=== PATIENT | male | born 1995 | race Caucasian/White ===

== ENCOUNTER 2018-04-08 18:33 | Inpatient (IN) | payer BC ==
[2018-04-08 19:26] VITALS: BMI 32.3
--- NOTE | 2018-04-08 20:21 | HP ---
CIWA Score Nausea/Vomitin Muscle Tremors: 3 Anxiety: 3 Agitation: 2 Paroxysmal Sweats: 2 Orientation: 0-Oriented Tacttile Disturbances: 2-Mild Itch/Numbness/Burn Auditory Disturbances: 2-Mild Harshness/Frighten Visual Disturbances: 1-Very Mild Sensitivity Headache: 1-Very Mild CIWA-Ar Total Score: 18 - Admission Criteria [facility] Guidelines: Admission for Medically Managed Detox: Requires at least one of the followin. CIWA greater than 12 2. Seizures within the past 24 hours 3. Delirium tremens within the past 24 hours 4. Hallucinations within the past 24 hours 5. Acute intervention needed for co occurring medical disorder 6. Acute intervention needed for co occurring psychiatric disorder 7. Severe withdrawal that cannot be handled at a lower level of care (continued vomiting, continued diarrhea, abnormal vital signs) requiring intravenous medication and/or fluids 8. Admission ROS [facility] - HPI Chief Complaint: DEPENDENT ON ETOH ONLY Allergies/Adverse Reactions: Allergies Allergy/AdvReac Type Severity Reaction Status Date / Time No Known Allergies Allergy Verified 04/08/18 19:26 History of Present Illness: THE PT. IS REQUESTING ADMISSION TO THE DETOX UNIT AND CAME FOR H AND PE Exam Limitations: No Limitations - Ebola screening Have you traveled outside of the country in the last 21 days: No (N) Have you had contact with anyone from an Ebola affected area: No Have you been sick,other than usual withdrawal symptoms: No Do you have a fever: No - Review of Systems Constitutional: See HPI, Malaise, Weakness EENT: reports: See HPI Respiratory: reports: See HPI Cardiac: reports: See HPI GI: reports: See HPI, Nausea, Abdominal cramping : reports: See HPI Musculoskeletal: reports: See HPI, Muscle Pain, Muscle Weakness Integumentary: reports: See HPI, Sweating Neuro: reports: See HPI, Headache, Tremors, Weakness Endocrine: reports: See HPI Hematology: reports: See HPI Psychiatric: reports: Judgement Intact, Orientated x3, Anxious, Depressed Patient History - Patient Medical History Hx Asthma: No Hx Cardiac Disorders: No Hx Hypertension: Yes Hx Seizures: No Hx Diabetes: No Hx Gastrointestinal Disorders: No Hx Sexually Transmitted Disorders: No Hx Renal Disease (ESRD): No Hx Human Immunodeficiency Virus (HIV): No Hx Hepatitis C: No Hx Depression: Yes (AND ANXIETY) Hx Schizophrenia: Yes - Patient Surgical History Past Surgical History: Yes Other Surgical History: HEAD INJURY IN 2012 - Smoking Cessation Smoking history: Current every day smoker Have you smoked in the past 12 months: Yes Aproximately how many cigarettes per day: 30 Hx Chewing Tobacco Use: No Initiated information on smoking cessation: Yes 'Breaking Loose' booklet given: 04/08/18 - Substance & Tx. History Hx Alcohol Use: Yes Hx Substance Use: No Substance Use Type: Alcohol Hx Substance Use Treatment: No - Substances Abused Alcohol Route: Oral Frequency: Daily Amount used: 6 beers Age of first use: 22 Date of Last Use: 04/08/18 Family Disease History - Family Disease History Family History: Denies Admission Physical Exam S - Vital Signs Vital Signs: Vital Signs - 24 hr 04/08/18 19:17 Temperature 97.8 F Pulse Rate 114 H Respiratory 18 Rate Blood Pressure 136/92 - Physical General Appearance: Yes: No Apparent Distress, Nourished, Appropriately Dressed , Alcohol on Breath, Tremorous, Sweating, Anxious HEENTM: Yes: Hearing grossly Normal, Normocephalic, Normal Voice, ASHLEY, Pharynx Normal Respiratory: Yes: Chest Non-Tender, Lungs Clear, Normal Breath Sounds Neck: Yes: No masses,lesions,Nodules, Supple, Trachea in good position Breast: Yes: Breast Exam Deferred, Axillae without masses Cardiology: Yes: Regular Rhythm, S1, S2, Tachycardia Abdominal: Yes: Normal Bowel Sounds, Non Tender, Soft, Protuberent Back: Yes: Normal Inspection Musculoskeletal: Yes: full range of Motion, Gait Steady, Pelvis Stable, Muscle Pain, Muscle weakness Extremities: Yes: Normal Capillary Refill, Normal Range of Motion, Non-Tender, Tremors Neurological: Yes: stem crusher II-XII NML intact, Fully Oriented, Alert, Motor Strength 5/5, Normal Response, Depressed Affect Integumentary: Yes: Warm, Moist Lymphatic: Yes: Within Normal Limits - Addiitonal Findings: HEALED SURGICAL SCAR ON THE ABDOMEN++ - Diagnostic (1) EtOH dependence Current Visit: Yes Status: Chronic Qualifiers: Substance use status: uncomplicated Qualified Code(s): F10.20 - Alcohol dependence, uncomplicated (2) Nicotine dependence Current Visit: Yes Status: Chronic Qualifiers: Nicotine product type: cigarettes Substance use status: uncomplicated Qualified Code(s): F17.210 - Nicotine dependence, cigarettes, uncomplicated (3) Anxiety and depression Current Visit: Yes Status: Chronic (4) Schizo affective schizophrenia Current Visit: Yes Status: Chronic Cleared for Admission [facility] - Detox or Rehab [facility] Level of Care: Medically Supervised Detox Regimen/Protocol: Librium [facility] Breath Alcohol Content Breath Alcohol Content: 0.055 Urine Drug Screen - Results Drug Screen Negative: Yes
[2018-04-08] MEDS ORDERED: MAGNESIUM CITRATE 300 ML BOTTLE PO PRN (20:25)
[2018-04-08] MEDS ORDERED: MAGNESIUM HYDROX 2400MG/30ML ORAL SUSPENSION 30 ML CUP PO PRN (20:25)
[2018-04-08] MEDS ORDERED: MENTHOL/PHENOL 1 EACH UD MM PRN (20:25)
[2018-04-08] MEDS ORDERED: LOPERAMIDE HCL 2 MG CAPSULE PO PRN (20:25)
[2018-04-08] MEDS ORDERED: chlordiazePOXIDE HCL 25 MG CAPSULE PO PRN (20:25)
[2018-04-08] MEDS ORDERED: P-EPHED 60MG/TRIPROLIDI 2.5MG TABLET PO PRN (20:25)
[2018-04-08] MEDS ORDERED: ACETAMINOPHEN 325 MG TABLET (FP) PO PRN (20:25)
[2018-04-08] MEDS ORDERED: IBUPROFEN 400 MG TABLET (FP) PO PRN (20:25)
[2018-04-08] MEDS ORDERED: MAG HYDROX/AL HYDROX/SIMETH 30 ML UNIT-DOSE CUP PO PRN (20:25)
[2018-04-08] MEDS ORDERED: guaiFENesin/D-METHORPHAN HB 10 ML UNIT-DOSE CUPS PO PRN (20:25)
[2018-04-08] MEDS ORDERED: MELATONIN 5 MG TABLETS PO PRN (22:00)
[2018-04-08] MEDS: THIAMINE HCL 100 MG TABLET (FP) PO SCH (22:51)
[2018-04-08] MEDS: chlordiazePOXIDE HCL 25 MG CAPSULE PO SCH (22:51)
[2018-04-09] MEDS: chlordiazePOXIDE HCL 25 MG CAPSULE PO SCH ×4 (05:32→22:22)
--- NOTE | 2018-04-09 09:25 | CONSULT ---
[facility] Psychiatric Consult - Data Date of interview: 04/09/18
--- NOTE | 2018-04-09 09:30 | CONSULT ---
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 Refer to addiction counselor's summary for further information Medical History: Significant for hypertension. Smokes cigarettes 1.5 ppd Psychiatric History: Reports hat his first psychiatric contact was at age 18 when he was diagnosed with ADHD/Panic Disorder by a psychiatrist in [place], [place]. He was started on Adderall and Klonopin which he took for 3 years. At [age] , he had his first psychiatric admission to [facility] in [place], [place] and he was diagnosed with Schizoaffective Disorder. That same year he had a second admission in [facility] in [place]. He receives psychiatric outpatient services at [facility] in [place], [place] and he is prescribed Lexapro 15 mg po daily, Latuda 60 mg po HS and Atomoxetine 80 mg po daily. Told play writer that despite taking these medications, he continues to hear voices all the time. Denies history of suicidal attempt. At present, reports feeling depressed, anxious and sleeping poorly. Told play writer that Melatonin given to him last night for insomnia did not help. Physical/Sexual Abuse/Trauma History: Denies history of emotional, physical or sexual abuse as well as DV relationship. No service Additional Comment: Reports history of previous arrests for possession of cannabis. No probation at present Mental Status Exam - Mental Status Exam Alert and Oriented to: Time, Person Cognitive Function: Fair Patient Appearance: Well Groomed Mood: Depressed, Anxious Affect: Appropriate Patient Behavior: Cooperative Speech Pattern: Clear Voice Loudness: Normal Thought Process: Intact, Goal Oriented Hallucinations: Denies Suicidal Ideation: Denies Homicidal Ideation: Denies Insight/Judgement: Fair Sleep: Poorly Appetite: Poor Muscle strength/Tone: Rigidity Gait/Station: Normal Psychiatric Findings - Problem List ([place] 1, 2,3) (1) ADHD (attention deficit hyperactivity disorder) Current Visit: Yes Status: Chronic (2) Schizoaffective disorder Current Visit: Yes Status: Chronic (3) Alcohol-induced mood disorder Current Visit: Yes Status: Acute (4) Alcohol-induced sleep disorder Current Visit: Yes Status: Acute (5) Alcohol dependence Current Visit: Yes Status: Acute (6) Nicotine dependence Current Visit: Yes Status: Chronic Qualifiers: Nicotine product type: cigarettes Substance use status: uncomplicated Qualified Code(s): F17.210 - Nicotine dependence, cigarettes, uncomplicated (7) HTN (hypertension) Current Visit: Yes Status: Chronic - Initial Treatment Plan Initial Treatment Plan: 1) Continue Lexapro 15 mg po daily, Latuda 60 mg po HS and Atomoxetine 80 mg po daily. 2) Start Belsomra 10 mg po HS prn for insomnia. 3) Continue inpatient detoxification
[2018-04-09] MEDS: LOSARTAN POTASSIUM 50 MG TABLET (FP) PO SCH (10:04)
[2018-04-09] MEDS: ESCITALOPRAM OXALATE 10 MG TABLET (FP) PO SCH (10:04)
[2018-04-09] MEDS: NIFEdipine E.R 60 MG TABLET (UD) PO SCH (10:04)
[2018-04-09] MEDS: PRENATAL VITAMINS W/ FOLIC ACID TABLET (FP) PO SCH (10:04)
[2018-04-09] MEDS: NICOTINE 21 MG/24 HOURS TOPICAL PATCH TD SCH (10:05)
[2018-04-09] MEDS: NICOTINE POLACRILEX 4 MG GUM BUC PRN ×5 (10:06→21:11)
[2018-04-09 10:48] LABS: HEMATOCRIT 40.6 % (35.4-49); HEMOGLOBIN 13.3 GM/dL (11.7-16.9); MCH 26.5 pg (25.7-33.7); MCHC 32.8 g/dl (32.0-35.9); MEAN CELL VOLUME 80.8 fl (80-96); MEAN PLT VOLUME 8.9 fl (7.5-11.1); PLATELET COUNT 211 K/MM3 (134-434); RBC 5.03 M/mm3 (4.00-5.60); RDW 15.6 % (11.9-15.9); WHITE BLOOD COUNT 8.6 K/mm3 (4.0-10.0)
[2018-04-09 10:57] LABS: ALK PHOS 133 U/L (45-117); ANION GAP 8 MMOL/L (8-16); BILIRUBIN,TOTAL 0.5 mg/dL (0.2-1); BLOOD UREA NITROGEN 13 mg/dL (7-18); CALCIUM 8.5 mg/dL (8.5-10.1); CHLORIDE 103 mmol/L (98-107); CO2 26 mmol/L (21-32); CREATININE 0.8 mg/dL (0.55-1.3); GLUCOSE,RANDOM 92 mg/dL (74-106); POTASSIUM 4.1 mmol/L (3.5-5.1); SGOT/AST 31 U/L (15-37); SGPT/ALT 62 U/L (13-61); SODIUM 136 mmol/L (136-145); TOT PROT 6.8 g/dl (6.4-8.2)
--- NOTE | 2018-04-09 17:43 | PN ---
S CIWA - CIWA Score Nausea/Vomitin Muscle Tremors: 4-Moderate,w/Arms Extend Anxiety: 4-Mod. Anxious/Guarded Agitation: 4-Moderately Restless Paroxysmal Sweats: 3 Orientation: 0-Oriented Tacttile Disturbances: 1-Very Mild Itch/Numbness Auditory Disturbances: 0-None Visual Disturbances: 0-None Headache: 0-None Present CIWA-Ar Total Score: 18 [facility] Progress Note (SOAP) Subjective: Body aches, sweating, interrupted sleep Objective: 04/09/18 17:41 Last Vital Signs Temp Pulse Resp BP Pulse Ox 97 F L 100 H 20 149/99 04/09/18 13:40 04/09/18 13:40 04/09/18 13:40 04/09/18 13:40 Elevated b/p (h/o htn, on meds) Laboratory Tests 04/09/18 04/09/18 04/09/18 07:30 07:30 07:30 WBC 8.6 RBC 5.03 Hgb 13.3 Hct 40.6 MCV 80.8 MCH 26.5 MCHC 32.8 RDW 15.6 Plt Count 211 MPV 8.9 Sodium 136 Potassium 4.1 Chloride 103 Carbon Dioxide 26 Anion Gap 8 BUN 13 Creatinine 0.8 Creat Clearance w eGFR > 60 Random Glucose 92 Calcium 8.5 Total Bilirubin 0.5 AST 31 ALT 62 H Alkaline Phosphatase 133 H Total Protein 6.8 Albumin 4.0 RPR Titer Nonreactive Labs reviewed Assessment: 04/09/18 17:42 Withdrawal symptoms Plan: Continue detox Encouraged PO water intake HTN: resumed nifedipine and losartan
[2018-04-09] MEDS ORDERED: LURASIDONE HCL 40 MG TABLET PO SCH (22:00)
[2018-04-09] MEDS: LURASIDONE HCL 20 MG, LURASIDONE HCL 40 MG PO SCH (22:22)
[2018-04-09] MEDS: THIAMINE HCL 100 MG TABLET (FP) PO SCH (22:23)
[2018-04-09] MEDS: SUVOREXANT 10 MG TABLET PO PRN (22:25)
[2018-04-09] MEDS: ATOMOXETINE HCL 40 MG CAPSULE PO SCH (23:31)
[2018-04-10] MEDS: chlordiazePOXIDE HCL 25 MG CAPSULE PO SCH ×3 (05:26→16:59)
[2018-04-10] MEDS: NICOTINE POLACRILEX 4 MG GUM BUC PRN ×6 (05:26→21:07)
[2018-04-10] MEDS: PRENATAL VITAMINS W/ FOLIC ACID TABLET (FP) PO SCH (10:04)
[2018-04-10] MEDS: NIFEdipine E.R 60 MG TABLET (UD) PO SCH (10:04)
[2018-04-10] MEDS: LOSARTAN POTASSIUM 50 MG TABLET (FP) PO SCH (10:04)
[2018-04-10] MEDS: ESCITALOPRAM OXALATE 10 MG TABLET (FP) PO SCH (10:04)
[2018-04-10] MEDS: ATOMOXETINE HCL 40 MG CAPSULE PO SCH (10:05)
[2018-04-10] MEDS: NICOTINE 21 MG/24 HOURS TOPICAL PATCH TD SCH (10:05)
[2018-04-10] MEDS: PANTOPRAZOLE 40 MG TABLET (FP) PO SCH (10:09)
--- NOTE | 2018-04-10 13:10 | PN ---
S CIWA - CIWA Score Nausea/Vomitin-Mild Nausea/No Vomiting Muscle Tremors: 4-Moderate,w/Arms Extend Anxiety: 3 Agitation: 3 Paroxysmal Sweats: 1-Minimal Palms Moist Orientation: 0-Oriented Tacttile Disturbances: 1-Very Mild Itch/Numbness Auditory Disturbances: 0-None Visual Disturbances: 0-None Headache: 1-Very Mild CIWA-Ar Total Score: 14 [facility] Progress Note (SOAP) Subjective: tremor sweat headaches trouble sleep at night gi distress Objective: 04/10/18 13:09 Vital Signs Temperature 98.8 F 04/10/18 13:08 Pulse Rate 130 H 04/10/18 13:08 Respiratory Rate 19 04/10/18 13:08 Blood Pressure 145/93 04/10/18 13:08 O2 Sat by Pulse Oximetry (%) Laboratory Last Values WBC 8.6 K/mm3 (4.0-10.0) 04/09/18 07:30 RBC 5.03 M/mm3 (4.00-5.60) 04/09/18 07:30 Hgb 13.3 GM/dL (11.7-16.9) 04/09/18 07:30 Hct 40.6 % (35.4-49) 04/09/18 07:30 MCV 80.8 fl (80-96) 04/09/18 07:30 MCH 26.5 pg (25.7-33.7) 04/09/18 07:30 MCHC 32.8 g/dl (32.0-35.9) 04/09/18 07:30 RDW 15.6 % (11.9-15.9) 04/09/18 07:30 Plt Count 211 K/MM3 (134-434) 04/09/18 07:30 MPV 8.9 fl (7.5-11.1) 04/09/18 07:30 Sodium 136 mmol/L (136-145) 04/09/18 07:30 Potassium 4.1 mmol/L (3.5-5.1) 04/09/18 07:30 Chloride 103 mmol/L (98-107) 04/09/18 07:30 Carbon Dioxide 26 mmol/L (21-32) 04/09/18 07:30 Anion Gap 8 MMOL/L (8-16) 04/09/18 07:30 BUN 13 mg/dL (7-18) 04/09/18 07:30 Creatinine 0.8 mg/dL (0.55-1.3) 04/09/18 07:30 Creat Clearance w eGFR > 60 (>60) 04/09/18 07:30 Random Glucose 92 mg/dL (74-106) 04/09/18 07:30 Calcium 8.5 mg/dL (8.5-10.1) 04/09/18 07:30 Total Bilirubin 0.5 mg/dL (0.2-1) 04/09/18 07:30 AST 31 U/L (15-37) 04/09/18 07:30 ALT 62 U/L (13-61) H 04/09/18 07:30 Alkaline Phosphatase 133 U/L (45-117) H 04/09/18 07:30 Total Protein 6.8 g/dl (6.4-8.2) 04/09/18 07:30 Albumin 4.0 g/dl (3.4-5.0) 04/09/18 07:30 RPR Titer Nonreactive (NONREACTIVE) 04/09/18 07:30 lab noted Assessment: 04/10/18 13:09 withdrawal sx Plan: continue detox
[2018-04-10] MEDS: THIAMINE HCL 100 MG TABLET (FP) PO SCH (22:00)
[2018-04-10] MEDS: SUVOREXANT 10 MG TABLET PO PRN (22:01)
[2018-04-10] MEDS: LURASIDONE HCL 20 MG, LURASIDONE HCL 40 MG PO SCH (22:01)
[2018-04-10] MEDS: chlordiazePOXIDE 5 MG CAPSULE PO SCH (22:01)
[2018-04-11] MEDS: chlordiazePOXIDE 5 MG CAPSULE PO SCH ×3 (05:37→17:05)
[2018-04-11] MEDS: NICOTINE POLACRILEX 4 MG GUM BUC PRN ×6 (05:38→21:11)
[2018-04-11] MEDS: ESCITALOPRAM OXALATE 10 MG TABLET (FP) PO SCH (10:05)
[2018-04-11] MEDS: LOSARTAN POTASSIUM 50 MG TABLET (FP) PO SCH (10:06)
[2018-04-11] MEDS: PRENATAL VITAMINS W/ FOLIC ACID TABLET (FP) PO SCH (10:06)
[2018-04-11] MEDS: NICOTINE 21 MG/24 HOURS TOPICAL PATCH TD SCH (10:06)
[2018-04-11] MEDS: ATOMOXETINE HCL 40 MG CAPSULE PO SCH (10:07)
[2018-04-11] MEDS: NIFEdipine E.R 60 MG TABLET (UD) PO SCH (10:07)
[2018-04-11] MEDS: PANTOPRAZOLE 40 MG TABLET (FP) PO SCH (10:07)
--- NOTE | 2018-04-11 14:44 | PN ---
[facility] Progress Note (SOAP) Subjective: patient requests to leave the detox around 06;30 AM feeling better no tremor no gi distress less sweat discuss aftercare with staff Objective: 04/11/18 14:42 Vital Signs Temperature 98.2 F 04/11/18 14:40 Pulse Rate 113 H 04/11/18 14:40 Respiratory Rate 18 04/11/18 14:40 Blood Pressure 135/84 04/11/18 14:40 O2 Sat by Pulse Oximetry (%) Laboratory Last Values WBC 8.6 K/mm3 (4.0-10.0) 04/09/18 07:30 RBC 5.03 M/mm3 (4.00-5.60) 04/09/18 07:30 Hgb 13.3 GM/dL (11.7-16.9) 04/09/18 07:30 Hct 40.6 % (35.4-49) 04/09/18 07:30 MCV 80.8 fl (80-96) 04/09/18 07:30 MCH 26.5 pg (25.7-33.7) 04/09/18 07:30 MCHC 32.8 g/dl (32.0-35.9) 04/09/18 07:30 RDW 15.6 % (11.9-15.9) 04/09/18 07:30 Plt Count 211 K/MM3 (134-434) 04/09/18 07:30 MPV 8.9 fl (7.5-11.1) 04/09/18 07:30 Sodium 136 mmol/L (136-145) 04/09/18 07:30 Potassium 4.1 mmol/L (3.5-5.1) 04/09/18 07:30 Chloride 103 mmol/L (98-107) 04/09/18 07:30 Carbon Dioxide 26 mmol/L (21-32) 04/09/18 07:30 Anion Gap 8 MMOL/L (8-16) 04/09/18 07:30 BUN 13 mg/dL (7-18) 04/09/18 07:30 Creatinine 0.8 mg/dL (0.55-1.3) 04/09/18 07:30 Creat Clearance w eGFR > 60 (>60) 04/09/18 07:30 Random Glucose 92 mg/dL (74-106) 04/09/18 07:30 Calcium 8.5 mg/dL (8.5-10.1) 04/09/18 07:30 Total Bilirubin 0.5 mg/dL (0.2-1) 04/09/18 07:30 AST 31 U/L (15-37) 04/09/18 07:30 ALT 62 U/L (13-61) H 04/09/18 07:30 Alkaline Phosphatase 133 U/L (45-117) H 04/09/18 07:30 Total Protein 6.8 g/dl (6.4-8.2) 04/09/18 07:30 Albumin 4.0 g/dl (3.4-5.0) 04/09/18 07:30 RPR Titer Nonreactive (NONREACTIVE) 04/09/18 07:30 lab noted Assessment: 04/11/18 14:43 mild withdrawal sx Plan: medically supervised detox
[2018-04-11] MEDS: chlordiazePOXIDE HCL 10 MG CAPSULE PO SCH (22:00)
[2018-04-11] MEDS: SUVOREXANT 10 MG TABLET PO PRN (22:01)
[2018-04-11] MEDS: LURASIDONE HCL 20 MG, LURASIDONE HCL 40 MG PO SCH (22:01)
[2018-04-11] MEDS: THIAMINE HCL 100 MG TABLET (FP) PO SCH (22:01)
[2018-04-12] MEDS: chlordiazePOXIDE HCL 10 MG CAPSULE PO SCH (05:35)
[2018-04-12] MEDS: NICOTINE POLACRILEX 4 MG GUM BUC PRN (05:36)
[2018-04-12 06:12] VITALS: BP 138/88; PULSE 110; TEMP 97.6
--- NOTE | 2018-04-12 11:06 | DS ---
[facility] Detox Discharge Summary Admission Date: 04/08/18 Discharge Date: 04/12/18 - History Present History: Alcohol Dependence - Physical Exam Results Vital Signs: Vital Signs Temperature 97.6 F 04/12/18 06:12 Pulse Rate 110 H 04/12/18 06:12 Respiratory Rate 18 04/12/18 06:12 Blood Pressure 138/88 04/12/18 06:12 O2 Sat by Pulse Oximetry (%) Pertinent Admission Physical Exam Findings: PATIENT COMPLETED DETOX REGIMEN WITHOUT ADVERSE EVENT. PATIENT D/C CLINICALLY STABLE AND WITHOUT SI/HI. PATIENT ENCOURAGE BY STAFF TO ATTEND GROUP MEETINGS TO PREVENT RELAPSE AND TO FOLLOW UP WITH PCP WITHIN ONE WEEK OF D/C. DISCHARGE INSTRUCTIONS PROVIDED TO PATIENT BY STAFF. - Treatment Hospital Course: Detox Protocol Followed, Detoxed Safely, Responded well, Discharged Condition Good - Medication Discharge Medications: Ambulatory Orders Atomoxetine HCl [Strattera] 60 mg PO DAILY 04/08/18 Escitalopram Oxalate [Lexapro -] 15 mg PO DAILY 04/08/18 Lurasidone HCl [Latuda] 60 mg PO HS 04/08/18 Pantoprazole Sodium [Protonix -] 40 mg PO DAILY 04/10/18 Losartan Potassium [Cozaar -] 50 mg PO DAILY #30 tablet 04/11/18 Nifedipine ER [Procardia XL -] 60 mg PO DAILY #30 tab.er.24 04/11/18 - AMA Did Patient Leave Against Medical Advice: No
== END 2018-04-12 06:30 | disposition home or self-care (01) | DRG 897 ==
LOC: YASAS 18:33 → Y3N 19:35
PROC: HZ2ZZZZ Detoxification Services for Substance Abuse Treatment (ICD-10-PCS; principal; 2018-04-08)
DX: F10.230 Alcohol dependence with withdrawal, uncomplicated (principal); F10.280 Alcohol dependence with alcohol-induced anxiety disorder; F10.282 Alcohol dependence with alcohol-induced sleep disorder; F17.210 Nicotine dependence, cigarettes, uncomplicated; F41.8 Other specified anxiety disorders; F90.9 Attention-deficit hyperactivity disorder, unspecified type; F25.9 Schizoaffective disorder, unspecified; R00.0 Tachycardia, unspecified; I10 Essential (primary) hypertension
CPT/HCPCS: 36415; 80053; 85027; 86593